=== PATIENT | male | born 1975 | race Caucasian/White ===

== ENCOUNTER 2016-09-14 13:49 | Inpatient (IN) | payer OTHER ==
[2016-09-14] MEDS ORDERED: NACL 0.9% 1000 ML 1,000 ML IV ONE ×2 (15:23→23:12)
[2016-09-14 15:54] LABS: Basophils % (Auto) 0.2 % (0.0-1.8); Eosinophils % (Auto) 0.4 % (0.0-4.3); Hematocrit 39.7 % (35.5-45.6); Hemoglobin 13.3 gm/dl (11.8-15.2); Mean Corpuscular HGB Conc 33 % (32-34); Mean Corpuscular Hemoglobin 28 pg (28-32); Mean Corpuscular Volume 84 fl (84-94); Platelet Count 277 K/mm3 (140-440); Red Blood Count 4.73 M/mm3 (3.65-5.03); Red Cell Distribution Width 12.7 % (13.2-15.2); White Blood Count 11.8 K/mm3 (4.5-11.0)
[2016-09-14 16:09] LABS: Alanine Aminotransferase 27 units/L (7-56); Albumin 4.1 g/dL (3.9-5); Albumin/Globulin Ratio 1.5 %; Alkaline Phosphatase 54 units/L (35-129); Anion Gap 21 mmol/L; BUN/Creatinine Ratio 17.77; Bilirubin,Total 0.4 mg/dL (0.1-1.2); Blood Urea Nitrogen 16 mg/dL (9-20); Calcium 8.5 mg/dL (8.4-10.2); Carbon Dioxide 23 mmol/L (22-30); Chloride 92.8 mmol/L (98-107); Glucose 188 mg/dL (75-100); Lipase 27 units/L (13-60); Potassium 3.4 mmol/L (3.6-5.0); Sodium 133 mmol/L (137-145); Total Protein 6.9 g/dL (6.3-8.2)
[2016-09-14 16:14] LABS: INR 0.98 (0.87-1.13)
[2016-09-14 16:15] LABS: Partial Thromboplastin Time 25.1 Sec. (24.2-36.6)
[2016-09-14] MEDS ORDERED: NACL ONE (21:47)
--- NOTE | 2016-09-14 21:50 | Emergency Department Report ---
HPI - General Chief Complaint: GI Bleed Time Seen by Provider: 09/14/16 21:35 - HPI HPI: Room 1 The patient is a 41-year-old male presenting with chief complaint of bright red blood per rectum. Patient states this morning approximately 09:002 began passing bright red blood per rectum. Patient states he is passing pure blood and sometimes clots. Patient denies passage of stool. Patient denies abdominal pain or rectal pain with the episodes. The patient states she has not had any more episodes since approximately 15:00 today. Patient states she had diaphoresis and nausea nor longer episodes denies vomiting. The patient denies any previous episodes of hematochezia before today. Location: Gastrointestinal system Duration: [see above] Quality: Painless Severity: Moderate Modifying factors: [see above] Context: [see above] Mode of transportation: [not driving] ED Past Medical Hx - Past Medical History Hx Hypertension: Yes Hx Diabetes: Yes - Surgical History Past Surgical History?: No - Family History Family history: no significant - Social History Smoking Status: Never Smoker Substance Use Type: None - Medications Home Medications: Home Medications Medication Instructions Recorded Confirmed Last Taken Type Losartan [Cozaar] 25 mg PO QDAY 09/14/16 09/14/16 09/14/16 History metFORMIN [Glucophage] 500 mg PO BID 09/14/16 09/14/16 09/14/16 History ED Review of Systems ROS: Stated complaint: BLOOD IN STOOL Other details as noted in HPI Comment: All other systems reviewed and negative Constitutional: diaphoresis Eyes: denies: eye pain, eye discharge, vision change ENT: denies: ear pain, throat pain Respiratory: denies: cough, shortness of breath, wheezing Cardiovascular: denies: chest pain, palpitations Endocrine: no symptoms reported Gastrointestinal: nausea, hematochezia. denies: abdominal pain, vomiting, hematemesis, melena Genitourinary: denies: urgency, dysuria Musculoskeletal: denies: back pain, joint swelling, arthralgia Skin: denies: rash, lesions Neurological: denies: headache, weakness, paresthesias Psychiatric: denies: anxiety, depression Hematological/Lymphatic: denies: easy bleeding, easy bruising Physical Exam - Physical Exam Vital Signs: Vital Signs 09/14/16 09/14/16 09/14/16 15:17 19:41 21:29 Temperature 98.2 F 98.6 F 98 F Pulse Rate 92 H 75 82 Respiratory 18 20 16 Rate Blood Pressure 131/82 111/76 Blood Pressure 118/78 [Left] O2 Sat by Pulse 100 100 99 Oximetry Physical Exam: GENERAL: The patient is well-developed well-nourished male lying on stretcher not appearing to be in acute distress. [] HEENT: Normocephalic. Atraumatic. Extraocular motions are intact. Patient has moist mucous membranes. NECK: Supple. Trachea midline CHEST/LUNGS: Clear to auscultation. There is no respiratory distress noted. HEART/CARDIOVASCULAR: Regular. There is no tachycardia. There is no gallop rub or murmur. ABDOMEN: Abdomen is soft, nontender. Patient has normal bowel sounds. There is no abdominal distention. SKIN: There is no rash. There is no edema. There is no diaphoresis. NEURO: The patient is awake, alert, and oriented. The patient is cooperative. The patient has normal speech MUSCULOSKELETAL: There is no evidence of acute injury. RECTAL: GUAIAC POSITIVE. NO EVIDENCE OF HEMORRHOIDS OR FISSURE ED Course Vital Signs 09/14/16 09/14/16 09/14/16 15:17 19:41 21:29 Temperature 98.2 F 98.6 F 98 F Pulse Rate 92 H 75 82 Respiratory 18 20 16 Rate Blood Pressure 131/82 111/76 Blood Pressure 118/78 [Left] O2 Sat by Pulse 100 100 99 Oximetry ED Medical Decision Making - Lab Data Result diagrams: 09/14/16 15:35 09/14/16 15:35 Laboratory Tests 09/14/16 09/14/16 09/14/16 15:35 15:35 15:35 WBC 11.8 H RBC 4.73 Hgb 13.3 Hct 39.7 MCV 84 MCH 28 MCHC 33 RDW 12.7 L Plt Count 277 Lymph % (Auto) 18.6 [place] % (Auto) 7.9 H Eos % (Auto) 0.4 Baso % (Auto) 0.2 Lymph # 2.2 [place] # 0.9 H Eos # 0.0 Baso # 0.0 Seg Neutrophils % 72.9 H Seg Neutrophils # 8.6 H PT 12.9 INR 0.98 APTT 25.1 Sodium 133 L Potassium 3.4 L Chloride 92.8 L Carbon Dioxide 23 Anion Gap 21 BUN 16 Creatinine 0.9 Estimated GFR > 60 BUN/Creatinine Ratio 17.77 Glucose 188 H Calcium 8.5 Total Bilirubin 0.4 AST 21 ALT 27 Alkaline Phosphatase 54 Total Protein 6.9 Albumin 4.1 Albumin/Globulin Ratio 1.5 Lipase 27 Blood Type Antibody Screen 09/14/16 15:35 WBC RBC Hgb Hct MCV MCH MCHC RDW Plt Count Lymph % (Auto) [place] % (Auto) Eos % (Auto) Baso % (Auto) Lymph # [place] # Eos # Baso # Seg Neutrophils % Seg Neutrophils # PT INR APTT Sodium Potassium Chloride Carbon Dioxide Anion Gap BUN Creatinine Estimated GFR BUN/Creatinine Ratio Glucose Calcium Total Bilirubin AST ALT Alkaline Phosphatase Total Protein Albumin Albumin/Globulin Ratio Lipase Blood Type A POSITIVE Antibody Screen Negative - EKG Data -: EKG Interpreted by Me EKG shows normal: sinus rhythm Rate: normal - EKG Data When compared to previous EKG there are: previous EKG unavailable Interpretation: other (no ST segment changes or T-wave inversions seen) - Medical Decision Making Although patient's H&H appear decent the patient becomes tachycardic upon standing. The patient is guaiac positive. Subsequently I will admit the patient to the hospital for further evaluation and monitoring of his H&H - Differential Diagnosis hemorrhoids, colonic mass, diverticulosis Critical care attestation.: If time is entered above; I have spent that time in minutes in the direct care of this critically ill patient, excluding procedure time. ED Disposition Clinical Impression: Rectal bleeding, Orthostasis Disposition: OP ADMITTED IP TO THIS HOSP Is pt being admited?: Yes Does the pt Need Aspirin: No Condition: Fair Referrals: PRIMARY CARE, [Primary Care Provider] - 3-5 Days Forms: Accompanied Note Time of Disposition: 23:30 (hospitalist notified)
[2016-09-14] MEDS ORDERED: NACL 0.9% 1000 ML 1,000 ML ONE (22:17)
--- NOTE | 2016-09-14 22:28 | Cat Scan Report ---
FINAL REPORT EXAM: CT ABDOMEN PELVIS W CON HISTORY: hematochezia COMPARISON: None available. TECHNIQUE: Contiguous axial images were obtained. Additional sagittal and coronal reformatted images were obtained. Administration of IV contrast given per institution protocol. Images submitted for interpretation. 100 cc Omnipaque [id number]. FINDINGS: Mild linear atelectasis at the lung bases. No calcified gallstones or biliary dilatation. No focal enhancing hepatic mass. At the hepatic dome there is a 2 millimeter low-attenuation lesion which may reflect a tiny cyst. This is too small to accurately characterize by CT. Spleen, pancreas, adrenal glands are grossly unremarkable. No solid renal lesion or hydronephrosis. Aorta and IVC are normal in caliber. Mild calcification of the iliac arteries. Urinary bladder and prostate gland are grossly unremarkable. Majority the colon is decompressed. The appendix is normal in caliber. No acute inflammatory changes of the appendix. Mild diverticulosis of the colon. No diverticulitis. Decompression of the colon limits evaluation wall thickening. Subtle colitis cannot be excluded along the left colon given the patient's history. However, there is no adjacent fat stranding or fluid to suggest acute inflammation. Bony pelvis and lumbar spine are grossly intact. IMPRESSION: Left colon is decompressed. This limits evaluation of wall thickening. Subtle colitis cannot be excluded given the patient's history hematochezia. The appendix is normal in caliber. No focal inflammatory changes the appendix. No other gross acute findings.
[2016-09-15] MEDS ORDERED: TYLENOL PO PRN ×3 (00:04→07:30)
[2016-09-15] MEDS ORDERED: ZOFRAN IV PRN ×2 (00:04→08:00)
[2016-09-15] MEDS ORDERED: DILAUDID IV PRN (00:04)
[2016-09-15] MEDS ORDERED: DULCOLAX PR PRN ×2 (00:04→10:00)
[2016-09-15] MEDS ORDERED: NACL 0.9% 1000 ML 1,000 ML ONE (00:13)
[2016-09-15] MEDS ORDERED: D5NS 1,000 ML IV SCH (01:00)
[2016-09-15] MEDS ORDERED: PROTONIX 80 MG in NACL 0.9% 100 ML IV SCH (01:00)
--- NOTE | 2016-09-15 07:09 | Event Note ---
Date: 09/14/16 See H/p in reports Lower GI Bleed-NSAIDS??Took 2 Ibuprofens for H/A HTN T2DM
--- NOTE | 2016-09-15 08:21 | Admit Criteria Form ---
Admission Criteria Documentation: GASTROINTESTINAL BLEEDING, LOWER Clinical Indications for Admission to Inpatient Care ( Place 'X' for any and all applicable criteria): Admission is indicated for ANY ONE of the following(1)(2)(3)(4)(5): [ ]I. Active gross bleeding per rectum [X]II. Inpatient admission required rather than observation care (Also use Gastrointestinal Bleeding, Lower: Observation Care as appropriate) because of ANY ONE of the following: [ ]a) Hemodynamic instability that is severe or persistent [ ]b) Anemia requiring inpatient admission as indicated by ALL of the following: [X]1) Presence of significant clinical finding indicated by ANY ONE of the following: [ ]A. Tachycardia for age [X]B. Orthostatic vital sign changes [ ]C. Cognitive impairment [ ]D. Heart failure [ ]E. Chest pain [ ]F. Exertional dyspnea [ ]G. Other findings suggesting inadequate perfusion (eg, peripheral or myocardial ischemia, end organ dysfunction) [ ]2) Initial (eg, emergency department, observation care) treatment with transfusion or volume replacement is judged inappropriate (due to severity of the finding) or has been ineffective [ ]c) Severe pain requiring acute inpatient management [ ]d) Absent bowel sounds with complete ileus [ ]e) Signs of intestinal obstruction or peritonitis [A] [ ]f) High-risk low platelet count [ ]g) Severe electrolyte abnormalities requiring inpatient care [ ]h) Acute renal failure [ ]i) High fever or infection requiring inpatient admission as indicated by ANY ONE of the following(8)(9): [ ]1) Appropriate outpatient or observation care antimicrobial treatment unavailable, not effective, or not feasible Documented bacteremia [ ]2) Documented bacteremia [ ]3) Temperature greater than 104.9 degrees F ( 40.5 degrees C) (oral) [ ]4) Temperature greater than 103.1 degrees F ( 39.5 degrees C) (oral) or less than 96.8 degrees F (36 degrees C) (rectal) that does not respond to all emergency treatment measures [X]j) IV fluid to replace significant ongoing losses ( greater than 3 L/m2 per day) [ ]k) Immediate inpatient surgery needed [ ]l) Parenteral nutrition regimen that must be implemented on inpatient basis [ ]m) Other condition, treatment or monitoring requiring inpatient admission [ ]III. Unstable comorbid illness (renal, hepatic, pulmonary, hematologic, neurologic, or cardiac) [ ]IV. Failure to control bleeding after colonoscopy [ ]V. Coagulopathy [ ]. Suspected or known ischemic colitis(6) [ ]VII. Previous aortic graft placement or known aortic aneurysm Extended stay beyond goal length of stay may be needed for(3)(4)(28): [ ]a) Emergency surgery [ ]b) Coagulation abnormalities(26) [ ]c) Recurrent or persistent bleeding, continued vital sign instability(27)( 28) [ ]d) Active comorbidities (eg, renal insufficiency, heart failure, pre- existing liver disease) The original [employer] content created by [employer] has been revised. The portions of the content which have been revised are identified through the use of italic text or in bold, and [facility] has neither reviewed nor approved the modified material. All other unmodified content is copyright [employer] [facility]. Please see references footnoted in the original [employer] edition 2016 Admission Criteria Met: Yes
[2016-09-15 08:23] LABS: Mean Corpuscular HGB Conc 34 % (32-34); Mean Corpuscular Hemoglobin 29 pg (28-32); Mean Corpuscular Volume 85 fl (84-94); Platelet Count 216 K/mm3 (140-440); Red Blood Count 3.79 M/mm3 (3.65-5.03); Red Cell Distribution Width 12.7 % (13.2-15.2); White Blood Count 9.5 K/mm3 (4.5-11.0)
[2016-09-15] MEDS ORDERED: MILK OF MAGNESIA PO PRN (08:30)
[2016-09-15 08:38] LABS: Anion Gap 16 mmol/L; BUN/Creatinine Ratio 16.25; Blood Urea Nitrogen 13 mg/dL (9-20); Calcium 8.3 mg/dL (8.4-10.2); Carbon Dioxide 26 mmol/L (22-30); Chloride 98.5 mmol/L (98-107); Glucose 104 mg/dL (75-100); Potassium 3.7 mmol/L (3.6-5.0); Sodium 137 mmol/L (137-145)
[2016-09-15] MEDS ORDERED: KCL 10MEQ/100ML 10 MEQ/100 ML BAG IV SCH (09:00)
[2016-09-15 09:47] VITALS: BP 102/59
--- NOTE | 2016-09-15 10:04 | Progress Note ---
Hospitalist Physical - Constitutional Vitals: Temp Pulse Resp BP Pulse Ox 98.3 F 67 16 102/59 99 09/15/16 07:55 09/15/16 07:55 09/15/16 07:55 09/15/16 07:55 09/15/16 07:55 Results - Labs CBC & Chem 7: 09/15/16 17:06 09/15/16 07:44 Labs: Laboratory Last Values WBC 9.5 K/mm3 (4.5-11.0) 09/15/16 07:44 RBC 3.79 M/mm3 (3.65-5.03) 09/15/16 07:44 Hgb 11.0 gm/dl (11.8-15.2) L 09/15/16 07:44 Hct 32.0 % (35.5-45.6) L D 09/15/16 07:44 MCV 85 fl (84-94) 09/15/16 07:44 MCH 29 pg (28-32) 09/15/16 07:44 MCHC 34 % (32-34) 09/15/16 07:44 RDW 12.7 % (13.2-15.2) L 09/15/16 07:44 Plt Count 216 K/mm3 (140-440) 09/15/16 07:44 Lymph % (Auto) 18.6 % (13.4-35.0) 09/14/16 15:35 [place] % (Auto) 7.9 % (0.0-7.3) H 09/14/16 15:35 Eos % (Auto) 0.4 % (0.0-4.3) 09/14/16 15:35 Baso % (Auto) 0.2 % (0.0-1.8) 09/14/16 15:35 Lymph # 2.2 K/mm3 (1.2-5.4) 09/14/16 15:35 [place] # 0.9 K/mm3 (0.0-0.8) H 09/14/16 15:35 Eos # 0.0 K/mm3 (0.0-0.4) 09/14/16 15:35 Baso # 0.0 K/mm3 (0.0-0.1) 09/14/16 15:35 Seg Neutrophils % 72.9 % (40.0-70.0) H 09/14/16 15:35 Seg Neutrophils # 8.6 K/mm3 (1.8-7.7) H 09/14/16 15:35 PT 12.9 Sec. (12.2-14.9) 09/14/16 15:35 INR 0.98 (0.87-1.13) 09/14/16 15:35 APTT 25.1 Sec. (24.2-36.6) 09/14/16 15:35 Sodium 137 mmol/L (137-145) 09/15/16 07:44 Potassium 3.7 mmol/L (3.6-5.0) 09/15/16 07:44 Chloride 98.5 mmol/L (98-107) 09/15/16 07:44 Carbon Dioxide 26 mmol/L (22-30) 09/15/16 07:44 Anion Gap 16 mmol/L 09/15/16 07:44 BUN 13 mg/dL (9-20) 09/15/16 07:44 Creatinine 0.8 mg/dL (0.8-1.5) 09/15/16 07:44 Estimated GFR > 60 ml/min 09/15/16 07:44 BUN/Creatinine Ratio 16.25 % 09/15/16 07:44 Glucose 104 mg/dL (75-100) H 09/15/16 07:44 Calcium 8.3 mg/dL (8.4-10.2) L 09/15/16 07:44 Total Bilirubin 0.4 mg/dL (0.1-1.2) 09/14/16 15:35 AST 21 units/L (5-40) 09/14/16 15:35 ALT 27 units/L (7-56) 09/14/16 15:35 Alkaline Phosphatase 54 units/L (35-129) 09/14/16 15:35 Total Protein 6.9 g/dL (6.3-8.2) 09/14/16 15:35 Albumin 4.1 g/dL (3.9-5) 09/14/16 15:35 Albumin/Globulin Ratio 1.5 % 09/14/16 15:35 Lipase 27 units/L (13-60) 09/14/16 15:35 Blood Type A POSITIVE 09/14/16 15:35 Antibody Screen Negative 09/14/16 15:35
--- NOTE | 2016-09-15 12:56 | History and Physical Report ---
CHIEF COMPLAINT: Lower GI bleed. HISTORY OF PRESENT ILLNESS: A 41-year-old male comes in for bright red blood per rectum since morning approximately 9:00. The patient has taken 2 ibuprofen for his headache yesterday. No abdominal pain. Bright red blood per rectum x 2 episodes. No more episodes since 3:00 p.m. today. The patient also felt diaphoretic and lightheaded. No hemetemesis. No previous history of GI bleed. PAST MEDICAL HISTORY: Hypertension and diabetes. PAST SURGICAL HISTORY: None. FAMILY HISTORY: No significant family history. SOCIAL HISTORY: Does not smoke, no alcohol, no recreational drugs. CURRENT MEDICATIONS: Losartan 25 mg once a day, metformin 500 mg twice a day. REVIEW OF SYSTEMS: CONSTITUTIONAL: No sore throat. No weight loss. No weight gain. No fever. No chills. HEENT: No sore throat. No postnasal drip. CARDIOVASCULAR: No chest pain. No palpitations. [place] lightheaded. RESPIRATORY: No cough. No sputum. ABDOMEN: Soft and benign. No hepatosplenomegaly. No pain. CENTRAL NERVOUS SYSTEM: No syncope. No seizures. SKIN: No rashes. PSYCHIATRIC: No depression. HEMATOLOGIC AND LYMPHATIC: No easy bruising, bleeding, or lymphedema. A 14-point review of systems done, essentially negative. PHYSICAL EXAMINATION: GENERAL: A middle-aged male, cooperative during examination. VITAL SIGNS: Blood pressure is 131/82, temperature is 98.2, pulse is 92, respirations are 18, sats are 100%. HEENT: Unremarkable. Pupils equal and reactive. NECK: Supple. No lymphadenopathy, no thyromegaly. LUNGS: Clear to auscultation and percussion. Good air entry. CARDIOVASCULAR: S1, S2 heard. No gallop, no murmur, no rub. Apical impulse in left fifth intercostal space and midclavicular line. ABDOMEN: Soft and benign. No guarding, no rigidity. Hernial orifices are normal. EXTREMITIES: Good pedal pulses. No pedal edema. CENTRAL NERVOUS SYSTEM: Alert and oriented x 4. Nonfocal exam. SKIN: Normal. LABORATORY DATA: Significant for white count of 11,800, H and H 13.3 and 39.7, platelet count is 277,000. Potassium 3.4, glucose , sodium 133, chloride ASSESSMENT AND PLAN: 1. Lower gastrointestinal bleed, probably secondary to NSAIDS, probably peptic ulcer disease. GI consulted. The patient is also started on IV Protonix. The patient is counseled to avoid non-steroidals in the future. The patient may need colonoscopy because of the bright red blood per rectum. Differential diagnosis of diverticular bleed versus peptic ulcer disease versus duodenal ulcer. 2. Hyponatremia, mild. Should correct with IV fluids. 3. Hypokalemia, supplemented. 4. Hypertension. Losartan on hold for the time being. 5. Type 2 diabetes. Insulin coverage. 6. Deep venous thrombosis prophylaxis, only SCDs. No Lovenox. JOB# [id number] RASHAUN/MARJORIE
--- NOTE | 2016-09-15 14:12 | Gastroenterology Consultation ---
History of Present Illness - Reason for Consult Consult date: 09/15/16 Hematochezia Requesting physician: UGO ANGELES - History of Present Illness Asked to see this pleasant 41yo man for evaluation of acute blood loss/anemia/ hematochezia. Pt states that yesterday morning, he began to have several episodes of rectal bleeding. He describes it as fresh blood. No abdominal pain. Last bloody BM was at 3PM yesterday; had 2 BM's today, which he states were brown. No prior hx of bleeding. No nausea/vomiting, black/tarry stools. No CP/SOB. Hb was 13.3 on admission, now 11.0. No other complaints. Past History Past Medical History: diabetes, hypertension Past Surgical History: No surgical history Social history: no significant social history Family history: no significant family history Medications and Allergies Allergies Allergy/AdvReac Type Severity Reaction Status Date / Time egg Allergy Rash Verified 09/14/16 21:41 shellfish derived Allergy Rash Verified 09/14/16 21:42 Home Medications Medication Instructions Recorded Confirmed Last Taken Type Losartan [Cozaar] 25 mg PO QDAY 09/14/16 09/14/16 09/14/16 History metFORMIN [Glucophage] 500 mg PO BID 09/14/16 09/14/16 09/14/16 History Active Meds: Active Medications Acetaminophen (Tylenol) 650 mg PO Q4H PRN PRN Reason: Pain MILD(1-3) Acetaminophen (Tylenol) 650 mg PO Q4H PRN PRN Reason: fever>100.5 Bisacodyl (Dulcolax) 10 mg NV QDAY PRN PRN Reason: Constipation unrelieved by MOM Bisacodyl (Dulcolax) 10 mg NV QDAY PRN PRN Reason: Constipation unrelieved by MOM Hydromorphone HCl (Dilaudid) 0.5 mg IV Q3H PRN PRN Reason: Pain , Severe (7-10) Dextrose/Sodium Chloride (D5ns) 1,000 mls @ 100 mls/hr IV DIRECT NAN Pantoprazole Sodium 80 mg/ (Sodium Chloride) 100 mls @ 10 mls/hr IV DIRECT NAN PRN Reason: 8 MG/HR Magnesium Hydroxide (Milk Of Magnesia) 30 ml PO Q4H PRN PRN Reason: Constipation Ondansetron HCl (Zofran) 4 mg IV Q8H PRN PRN Reason: Nausea And Vomiting Review of Systems - Review of Systems All systems: negative (hematochezia) Exam - Constitutional Vital Signs: Temp Pulse Resp BP Pulse Ox 98.3 F 67 16 102/59 99 09/15/16 07:55 09/15/16 07:55 09/15/16 07:55 09/15/16 07:55 09/15/16 07:55 General appearance: no acute distress - Neck Neck: supple - Respiratory Respiratory: bilateral: CTA - Cardiovascular Rhythm: regular Heart Sounds: Present: S1 & S2 Extremities: No edema - Gastrointestinal General gastrointestinal: Present: soft, non-tender, non-distended, normal bowel sounds - Integumentary Integumentary: Present: clear - Neurologic Neurological: alert and oriented x3 - Psychiatric Psychiatric: appropriate mood/affect - Labs CBC & Chem 7: 09/15/16 07:44 09/15/16 07:44 Lab Results: Laboratory Results - last 24 hr 09/15/16 09/15/16 07:44 07:44 WBC 9.5 RBC 3.79 Hgb 11.0 L Hct 32.0 L D MCV 85 MCH 29 MCHC 34 RDW 12.7 L Plt Count 216 Sodium 137 Potassium 3.7 Chloride 98.5 Carbon Dioxide 26 Anion Gap 16 BUN 13 Creatinine 0.8 Estimated GFR > 60 BUN/Creatinine Ratio 16.25 Glucose 104 H Calcium 8.3 L Assessment and Plan 41yo man a/w painless hematochezia; would favor diverticular etiology and bleeding has stopped for almost 24 hrs. Rec: 1) Discussed option of colonoscopy with pt, inpatient vs outpatient. Pt states that since he hasn't had further bleeding, he would like to be discharged and have the colonoscopy as an outpatient. This is reasonable. 2) Can check Hb now and if stable, I would be ok with discharge D/W Dr. Angeles, who agrees with plan. Thank you for allowing me to participate in the care of your patient.
--- NOTE | 2016-09-15 17:01 | Discharge Summary ---
Providers - Providers Date of Admission: 09/14/16 23:31 Date of discharge: 09/15/16 Attending physician: UGO ANGELES 09/15/16 00:04 Consult to Physician [CONS] Routine Consulting Provider: SANAM PARTIDA Reason For Exam: GI Bleed Place consult to:: Office Notified:: yes Phone number called:: [phone] Was contact made?: Yes If yes, spoke with:: Lisa Time called:: 09:45 Primary care physician: BUSINESS TECHNOLOGY ANALYST Hospitalization Condition: Fair Disposition: DISCHARGED TO HOME OR SELFCARE - Discharge Diagnoses (1) Lower GI bleed Status: Acute Core Measure Documentation - Palliative Care Palliative Care/ Comfort Measures: Not Applicable Exam - Constitutional Vitals: Temp Pulse Resp BP Pulse Ox 98.3 F 67 16 102/59 99 09/15/16 07:55 09/15/16 07:55 09/15/16 07:55 09/15/16 07:55 09/15/16 07:55 Plan Activity: advance as tolerated Diet: other (Soft diet) Additional Instructions: 1.Follow up with PCP or [facility] in 1 week. 2.Follow up with Dr. Mosley in 2-3 days. Follow up with: PRIMARY CAREMD [Primary Care Provider] - 3-5 Days Forms: Accompanied Note Prescriptions: Famotidine [Pepcid] 20 mg PO BID #30 tablet Omeprazole 40 mg PO DAILY #15 capsule.
[2016-09-15 17:25] LABS: Hemoglobin 11.4 gm/dl (11.8-15.2)
== END 2016-09-15 18:00 | disposition home or self-care (01) | DRG 378 ==
LOC: ED 13:49 → 2B-SURG 23:31
PROVIDERS: ADMIT Internal Medicine; ATTEND Internal Medicine
DX: K92.2 Gastrointestinal hemorrhage, unspecified (principal); E87.1 Hypo-osmolality and hyponatremia; I10 Essential (primary) hypertension; E11.9 Type 2 diabetes mellitus without complications; E87.6 Hypokalemia; Z79.84 Long term (current) use of oral hypoglycemic drugs; Z91.013 Allergy to seafood; Z91.012 Allergy to eggs
CPT/HCPCS: 36415; 74177; 80048; 80053; 82271; 83690; 85014; 85018; 85025; 85027; 85610; 85730; 86850; 86900; 86901; 93005; 93010; 96360; C9113; J3480; J7030; J7042; Q9967